=== PATIENT | male | born 1990 | race Two or more races ===

== ENCOUNTER 2020-01-17 00:35 | Emergency (ER) | payer MEDICAID, OTHER ==
[~2020-01-17] VITALS: Ht 185.4 cm; Wt 86.2 kg
[2020-01-17 00:49] VITALS: BP 131/92
== END 2020-01-17 02:59 | disposition left against medical advice (07) ==
LOC: EDBD 00:35 → ER 00:38
DX: S50.812A Abrasion of left forearm, initial encounter (principal); M54.5 Low back pain; M54.2 Cervicalgia; V43.52XA Car driver injured in collision with other type car in traffic accident, initial encounter; Y93.9 Activity, unspecified; Y92.89 Other specified places as the place of occurrence of the external cause; Y99.8 Other external cause status
CPT/HCPCS: 36415; 72125; 72128; 72131; 73090; 80320